=== PATIENT | female | born 1985 | race Caucasian/White ===

== ENCOUNTER 2017-08-20 20:00 | Inpatient (IN) | payer OTHER ==
[2017-08-20 21:10] LABS: BASO % 0.7 % (0-2.0); EOS % 1.4 % (0-4.5); HEMOGLOBIN 10.2 GM/dL (10.7-15.3); LYMPH % 14.8 % (8-40); MCH 27.4 pg (25.7-33.7); MEAN CELL VOLUME 83.1 fl (80-96); MEAN PLT VOLUME 8.5 fl (7.5-11.1); MONO % 9.1 % (3.8-10.2); PLATELET COUNT 248 K/MM3 (134-434); RBC 3.74 M/mm3 (3.60-5.2); RDW 14.2 % (11.6-15.6); WHITE BLOOD COUNT 10.7 K/mm3 (4.0-10.0)
[2017-08-20 21:27] LABS: ANION GAP 9 (8-16); BLOOD UREA NITROGEN 9 mg/dL (7-18); CALCIUM 8.5 mg/dL (8.5-10.1); CHLORIDE 109 mmol/L (98-107); CO2 22 mmol/L (21-32); CREATININE 0.7 mg/dL (0.55-1.02); GLUCOSE,RANDOM 95 mg/dL (74-106); SODIUM 140 mmol/L (136-145)
[2017-08-20 21:30] LABS: INR 0.91 (0.82-1.09); PROTHROMBIN TIME (PATIENT) 10.3 SEC (9.7-13.0)
[2017-08-20 21:32] LABS: ACTIVATED PTT 27.6 SECONDS (25.2-36.5)
--- NOTE | 2017-08-20 21:32 | HP ---
Past Medical History - Primary Care Physician PCP:: Dilip Guzman - Admission Chief Complaint: 39.5 weeks, gestational HTN , obesity ,referred for cervidil induction History of Present Illness: 32 yo f edc by sono 08/22/17 , with hx of maternal obesity, gestational HTN , referred for cervidil induction , risk has discussed with patient , no rom , no bleeding , cx closed long vx -3 mi, fhr cat 1, no contraction History Source: Patient Limitations to Obtaining History: No Limitations - Past Medical History ...: 1 ...Para: 0 ...Spon : 0 ...EDC by Sono: 08/22/17 Heme/Onc: Yes: Anemia Endocrine: Yes: Hypothyroidism (on no meds), Other (hx of PCOS previously on metformin) - Past Surgical History Hx Myomectomy: No Hx Transabdominal Cerclage: No - Alcohol/Substance Use Hx Alcohol Use: No History of Substance Use: reports: None - Social History Usual Living Arrangement: Yes: With Spouse History of Recent Travel: No Home Medications - Allergies Allergies/Adverse Reactions: Allergies Allergy/AdvReac Type Severity Reaction Status Date / Time No Known Allergies Allergy Verified 08/15/17 20:54 - Home Medications Home Medications: Ambulatory Orders Tablet 1 tablet PO HS 08/15/17 Review of Systems - Review of Systems Constitutional: reports: No Symptoms Eyes: reports: No Symptoms HENT: reports: No Symptoms Neck: reports: No Symptoms Cardiovascular: reports: No Symptoms Respiratory: reports: No Symptoms Gastrointestinal: reports: No Symptoms Genitourinary: reports: No Symptoms Breasts: reports: No Symptoms Reported Musculoskeletal: reports: No Symptoms Integumentary: reports: No Symptoms Neurological: reports: No Symptoms Endocrine: reports: No Symptoms Hematology/Lymphatic: reports: No Symptoms Psychiatric: reports: No Symptoms Physical Exam - Maternity Constitutional: Yes: Well Nourished, No Distress, Calm Eyes: Yes: WNL, Conjunctiva Clear, EOM Intact HENT: Yes: WNL, Atraumatic, Normocephalic Neck: Yes: WNL, Supple, Trachea Midline Cardiovascular: Yes: WNL, Regular Rate and Rhythm Breast(s): Yes: WNL - Abdominal Exam/OB Fundal Height: 40 Number of Fetuses: Single Presentation: Vertex Contractions: No Intensity: Unaware Monitor Mode: External Heart Rate Location: [facility] Category: I Accelerations: Uniform Decelerations: None - Vaginal Exam/OB Vaginal Bleediing: No Speculum Exam: No Dilatation (cm): closed Effacement (%): 0 Amniotic Membrane Status: Intact Presentation: Vertex/Position Station: -3 - Physical Exam Edema: LLE: Trace, RLE: Trace Deep Tendon Reflex Grade: Normal +2 ...Motor Strength: WNL Psychiatric: Yes: WNL - Labs Lab Results: CBC, BMP 08/20/17 21:00 Hemorrhage Risk Assessment - Risk Factors Medium Risk Factors: Yes: None High Risk Factors: Yes: None Risk Score: 1 Risk Level: Medium Risk Problem List - Problems (1) with 39 completed weeks gestation Code(s): Z3A.39 - 39 WEEKS GESTATION OF (2) Gestational [-induced] hypertension without significant proteinuria , unspecified trimester Code(s): O13.9 - GESTATIONAL HTN W/O SIGNIFICANT PROTEINURIA, UNSP TRIMESTER (3) Obesity Code(s): E66.9 - OBESITY, UNSPECIFIED Assessment/Plan admit for cervidil induction, risks discussed , cervidil inserted at 920 pm, fhm monitor 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
[2017-08-20 21:42] VITALS: BMI 41.5
[2017-08-20 22:00] LABS: URIC ACID 4.5 mg/dL (2.6-7.2)
[2017-08-20] MEDS ORDERED: PROMETHAZINE HCL 25 MG/1 ML VIAL IVPUSH ONE (22:15)
[2017-08-20] MEDS ORDERED: TUBERCULIN PPD 5 TU/0.1ML SYRINGE (IN PATIENT USE ONLY) ID ONE (22:30)
[2017-08-20] MEDS ORDERED: BUTORPHANOL TARTRATE 1 MG/ML VIAL IVPUSH ONE (22:30)
[2017-08-20 22:39] LABS: URINE APPEARANCE SLCLOUDY; URINE BILIRUBIN NEGATIVE (<2.0 mg/dL); URINE COLOR YELLOW; URINE GLUCOSE (UA) NEGATIVE (NEGATIVE); URINE KETONE NEGATIVE (NEGATIVE); URINE LEUK ESTERASE NEGATIVE (NEGATIVE); URINE NITRITE NEGATIVE (NEGATIVE); URINE PROTEIN NEGATIVE (NEGATIVE); URINE UROBILINOGEN NEGATIVE mg/dL (0.2-1.0)
[2017-08-21] MEDS ORDERED: DINOPROSTONE 10 MG VAGINAL SUPPOSITORY VG ONE (10:38)
--- NOTE | 2017-08-21 10:40 | PN ---
Progress Note, Labor Vaginal Exam #1 Labor Exam Date: 08/21/17 Labor Exam Time: 10:10 Heart Rate (range): 130s + accels, no decels Dilatation: 2 Effacement (%): 50% Amniotic Membrane Status: Intact Presentation: Vertex/Position Station: -3 Remarks: Category 1 FHR EFW 8lb Fam/Hx both mother and sister had c/sections Significant risk of c/section However currently MF status reassuring Excellent response to Cervidil - favorable cervix She is uncomfortable and would take Stadol/Phenergan for pain management Once constructions slow down Pitocin can be started Aura and her family understand there is significant risk of failure, and possibility of c/section, due to possible CPD
[2017-08-21] MEDS ORDERED: OXYTOCIN 30 UNITS in 0.9% NS 30 UNIT/500 ML INFUS.BAG IVPB SCH (10:45)
[2017-08-21] MEDS ORDERED: BUTORPHANOL TARTRATE 1 MG/ML VIAL ONE ×2 (10:55)
[2017-08-21] MEDS ORDERED: PROMETHAZINE HCL 25 MG/1 ML VIAL ONE (10:56)
[2017-08-21] MEDS ORDERED: FENTANYL/BUPIVACAINE/NS/PF - PCEA - 50 ML DISP.SYRIN EP ONE ×2 (13:55→18:28)
[2017-08-21] MEDS ORDERED: NALOXONE HCL 0.4 MG/ML VIAL IVPUSH PRN (13:57)
[2017-08-21] MEDS ORDERED: FENTANYL/BUPIVACAINE/NS/PF - PCEA - 50 ML DISP.SYRIN EP SCH (14:00)
[2017-08-21] MEDS ORDERED: LIDO 2%/EPI 1:200000 PRESRVFRE (20 ML SDVIAL) ONE ×2 (14:01→19:42)
[2017-08-21] MEDS: ELECTROLYTE-148 SOLN 1,000 ML IV SCH ×2 (14:30→19:30)
[2017-08-21] MEDS ORDERED: ELECTROLYTE-148 SOLN 1,000 ML IV ONE (18:45)
[2017-08-21] MEDS ORDERED: DEXTROSE 5%-LACTATED RINGERS 1,000 ML IV SCH ×2 (18:45→22:15)
--- NOTE | 2017-08-21 19:31 | PN ---
Progress Note, Labor Vaginal Exam #2 Labor Exam Date: 08/21/17 Labor Exam Time: 19:15 Heart Rate (range): 125' s Good accels, no decels Dilatation: 2 Effacement (%): 50% Amniotic Membrane Status: Intact Presentation: Vertex/Position Station: -3 Remarks: Unchanged exam, Irregular contraction pattern, occasional late decels when on larger doses of Pitocin No progress, All features of CPD offered primary c/section Risk of infection, bleeding, injury to internal organs and scaring discussed with patient and family Alternative is prolonged RAFAEL with risk of Chorioamnionitis, Shoulder dystosia, or just failed induction later Patient Elects to proceed with primary c/section
[2017-08-21] MEDS ORDERED: ceFAZolin SODIUM 1 GM VIAL ONE (19:49)
[2017-08-21] MEDS ORDERED: ONDANSETRON 4 MG/2 ML VIAL IVPUSH PRN (19:54)
[2017-08-21] MEDS ORDERED: morphine SULFATE/Preservative Free 0.5 MG/ML (1cc Syringe) EP ONE (19:54)
[2017-08-21] MEDS ORDERED: morphine SULFATE/Preservative Free 0.5 MG/ML (1cc Syringe) ONE ×7 (20:04→20:40)
[2017-08-21] MEDS ORDERED: MIDAZOLAM HCL 2 MG/2 ML SINGLE DOSE VIAL ONE ×2 (20:12→20:32)
[2017-08-21] MEDS ORDERED: OXYTOCIN 10 UNITS/ML VIAL ONE (20:34)
[2017-08-21] MEDS ORDERED: OXYTOCIN 20 UNITS in 0.9% NS 20 UNIT/1,000 ML INFUS.BAG IV ONE ×2 (20:36→21:51)
[2017-08-21] MEDS ORDERED: BUPIVACAINE HCL/PF 0.5% (5MG/ML) 10 ML VIAL ONE (20:36)
[2017-08-21] MEDS ORDERED: METOPROLOL TARTRATE 5 MG/5 ML VIAL ONE (20:46)
--- NOTE | 2017-08-21 21:29 | OP ---
Operative Note - Note: Operative Date: 08/21/17 Pre-Operative Diagnosis: 32yo P0 @ 39.6 wks with failed IOL, CPD Operation: Primary LST c/section Findings: Viable male [id number], head not engaged Normal tubes and ovaries Post-Operative Diagnosis: Same as Pre-op Surgeon: Josie Wynn Superintendent Geophysical Laboratory: Baron London Anesthesiologist/PROVIDER RELATIONS REP: Harman Conner Anesthesia: Epidural Estimated Blood Loss (mls): 700 Drains, Volume Out (mls): 150 Fluid Volume Replaced (mls): 1,400
--- NOTE | 2017-08-21 21:41 | PN ---
Delivery - Delivery Vaginal Delivery: No Problems, Other Section: Primary Type of Anesthesia: Epidural Episiotomy/Laceration: None EBL (cc): 700 Delivery, Single - Stages of Labor Date of Delivery: 08/21/17 Time of Delivery: 20:14 Date Placenta Delivered: 08/21/17 Time Placenta Delivered: 20:15 Placenta: Yes: Expressed - Condition of Infant Furnace Mechanic Helper/Cane Burner Present: No Gender: Male Weight: 7 lb 1 oz Position: OA Total Hours ROM (Hrs/Mins): 2 MIN - 1 Minute Total Score: 9 5 Minutes Total Score: 9 - Feeding Plan Initial Plan: Elected not to breastfeed exclusively throughout hospitalization Benefits of Exclusively reinforced: Yes Remarks - Remarks Remarks: See Op note
[2017-08-21] MEDS: OXYTOCIN 20 UNITS in 0.9% NS 20 UNIT/1,000 ML INFUS.BAG IV SCH (22:00)
[2017-08-21] MEDS ORDERED: WITCH HAZEL 50% (TUCKS) 40 PAD/JAR PAD TP PRN (22:03)
[2017-08-21] MEDS ORDERED: diphenhydrAMINE HCL 25 MG CAPSULE (FP) PO PRN (22:03)
[2017-08-21] MEDS ORDERED: BENZOCAINE 28 GM HEMORRHOIDAL OINTMENT PR PRN (22:03)
[2017-08-21] MEDS ORDERED: BENZOCAINE 20% 57 GM BOTTLE TP PRN (22:03)
[2017-08-21] MEDS ORDERED: METHYLERGONOVINE MALEATE 0.2 MG/1 ML AMP IM PRN (22:03)
[2017-08-21] MEDS ORDERED: CITRIC ACID/SODIUM CITRATE 30 ML UNIT-DOSE CUP PO ONE (22:06)
[2017-08-21] MEDS: IBUPROFEN 800 MG/8 ML IJ IVPB PRN (23:19)
[2017-08-22] MEDS ORDERED: cefTRIAXone SODIUM 1 GM VIAL ONE ×2 (01:48→08:53)
[2017-08-22] MEDS ORDERED: DEXTROSE 5%-WATER - 50 ML IVPB ONE ×2 (01:48→08:53)
[2017-08-22] MEDS: CEFTRIAXONE 1 GM in DEXTROSE 5%-WATER - 50 ML IVPB SCH ×2 (01:58→09:03)
[2017-08-22] MEDS: IBUPROFEN 800 MG/8 ML IJ IVPB PRN (06:32)
[2017-08-22 07:25] LABS: BASO % 0.4 % (0-2.0); EOS % 0.5 % (0-4.5); HEMOGLOBIN 8.5 GM/dL (10.7-15.3); LYMPH % 13.8 % (8-40); MCH 27.4 pg (25.7-33.7); MCHC 32.8 g/dl (32.0-36.0); MEAN CELL VOLUME 83.4 fl (80-96); MEAN PLT VOLUME 8.1 fl (7.5-11.1); MONO % 9.1 % (3.8-10.2); NEUT % 76.2 % (42.8-82.8); PLATELET COUNT 194 K/MM3 (134-434); RBC 3.11 M/mm3 (3.60-5.2); RDW 14.1 % (11.6-15.6); WHITE BLOOD COUNT 11.9 K/mm3 (4.0-10.0)
--- NOTE | 2017-08-22 08:16 | OP ---
DATE OF OPERATION: 08/21/2017 PREOPERATIVE DIAGNOSIS: A 32-year-old para 0 at 39 and 6 weeks with failed induction of labor, cephalopelvic disproportion. POSTOPERATIVE DIAGNOSIS: A 32-year-old para 0 at 39 and 6 weeks with failed induction of labor, cephalopelvic disproportion. OPERATION: Primary low-segment transverse section. FINDINGS: Viable male, 7 pounds 14 ounces. Head not engaged. Normal tubes and ovaries. SURGEON: Josie Wynn MD DIRECTOR ORACLE DATABASE: Baron London MD ANESTHESIOLOGIST: Russ Conner MD ANESTHESIA: Epidural. DESCRIPTION OF OPERATIVE PROCEDURE: After ensuring informed consent, patient was brought to the operating room where she was placed in dorsal supine position with left lateral tilt. Pfannenstiel skin incision was created with scalpel, carried down to the level of fascia with Bovie cautery. Fascia was incised in the midline with Bovie and extended bilaterally with Bovie cautery. Fascia was dissected off of the rectus abdominis muscle with Bovie cautery. Rectus muscle was split in the midline and dissected all the way down to the symphysis pubis. Peritoneum was identified, tented, and entered bluntly and dissected bilaterally, and bladder retracted with the lower edge of the [place]an. Vesicouterine peritoneum was identified, tented with pickup, and dissected bilaterally with Metzenbaum scissors and bluntly downwards and retracted with the lower edge of the [place]. Scalpel used to create the uterine incision which was subsequently dissected bilaterally with bandage scissors with good visualization of round ligaments. The infant's head was found to be ballottable and high, not engaged in the pelvis, and was delivered atraumatically. The rest of the 's body was delivered without any difficulties. Cord clamped and cut. The infant handed to pediatricians. Placenta was expressed without difficulty. Uterus was cleared of clots and debris and repaired with 0 Biosyn in 2 running, locking sutures, second one being imbricating. The abdomen was irrigated and found to be cleared of clots and debris. The peritoneum was repaired with 0 Biosyn in running fashion. The muscle rectus abdominis was reapproximated in the midline with interrupted sutures. The fascia was closed with 0 Vicryl in 1 suture. The subsequent subcutaneous space, which was almost 3 inches in size, was closed in 2 layers with 2-0 chromic, and subsequently, skin was closed with 4-0 Biosyn in running fashion. Excellent hemostasis was noted. Estimated blood loss was 700 mL. Patient put out 150 mL of urine and received 1400 mL of IV fluids. She was brought to the recovery room in stable condition. Carole [id number]
--- NOTE | 2017-08-22 08:18 | PN ---
Post Progress Note - Subjective Subjective: No complains, pain controlled Post Day: 1 Type of Delivery: Primary C/S Vital Signs: Vital Signs Temperature 98.5 F 08/22/17 07:10 Pulse Rate 91 H 08/22/17 07:10 Respiratory Rate 20 08/22/17 07:10 Blood Pressure 123/73 08/22/17 07:10 O2 Sat by Pulse Oximetry (%) 100 08/21/17 22:00 Breast Exam: Yes: Soft Uterus: Yes: Fundus Firm Incision: Yes: Dressing dry and intact Abdomen/GI: Yes: Abdomen soft Lochia: Yes: Rubra Lochia, amount: Small Extremities: Yes: Calves non-tender Perineum: Yes: Intact Activity: Ambulating, Other (in bed) - Labs Labs: CBC WBC 11.9 K/mm3 (4.0-10.0) H 08/22/17 06:20 RBC 3.11 M/mm3 (3.60-5.2) L 08/22/17 06:20 Hgb 8.5 GM/dL (10.7-15.3) L 08/22/17 06:20 Hct 26.0 % (32.4-45.2) L D 08/22/17 06:20 MCV 83.4 fl (80-96) 08/22/17 06:20 MCH 27.4 pg (25.7-33.7) 08/22/17 06:20 MCHC 32.8 g/dl (32.0-36.0) 08/22/17 06:20 RDW 14.1 % (11.6-15.6) 08/22/17 06:20 Plt Count 194 K/MM3 (134-434) D 08/22/17 06:20 MPV 8.1 fl (7.5-11.1) 08/22/17 06:20 Absolute Neuts (auto) 9.1 # 08/22/17 06:20 Neutrophils % 76.2 % (42.8-82.8) 08/22/17 06:20 Lymphocytes % 13.8 % (8-40) 08/22/17 06:20 Monocytes % 9.1 % (3.8-10.2) 08/22/17 06:20 Eosinophils % 0.5 % (0-4.5) 08/22/17 06:20 Basophils % 0.4 % (0-2.0) 08/22/17 06:20 Nucleated RBC % 0 % (0-0) 08/22/17 06:20 Haptoglobin 141 mg/dL (34-200) 08/20/17 21:43 Assessment/Plan 32yo P1 now s/p 1' c/section for CPD, Failed IOL Doing well VSS, Afebrile D/C Dove, encorage ambulation Rh positive - no need for RhoGam Male infant not interested in circumcision H/H low will correct with diet cont. routine care
[2017-08-22] MEDS: OXYTOCIN 20 UNITS in 0.9% NS 20 UNIT/1,000 ML INFUS.BAG IV SCH (08:30)
--- NOTE | 2017-08-22 11:10 | PN ---
Progress Note (short form) - Note Progress Note: Anesthesia/pain Pt seen and examined S:Alert and awake comfortable O: Vital Signs Temperature 98.5 F 08/22/17 07:10 Pulse Rate 91 H 08/22/17 07:10 Respiratory Rate 20 08/22/17 10:00 Blood Pressure 123/73 08/22/17 07:10 O2 Sat by Pulse Oximetry (%) 100 08/21/17 22:00 CBC, BMP 08/22/17 06:20 08/20/17 21:00 A/P: Current Active Problems Gestational [-induced] hypertension without significant proteinuria, unspecified trimester (Acute) Obesity (Acute) with 39 completed weeks gestation (Acute) s/p c section Doing well post op Continue current care Mikey Sotelo MD
[2017-08-22] MEDS: oxyCODONE HCL 5 MG TABLET PO PRN ×3 (13:23→21:45)
[2017-08-22] MEDS: IBUPROFEN 600 MG TABLET (FP) PO PRN ×3 (13:24→21:44)
[2017-08-22] MEDS: SIMETHICONE 80 MG TAB.CHEW (FP) PO PRN ×3 (13:25→21:44)
[2017-08-22] MEDS ORDERED: BISACODYL 10 MG SUPP.RECT RC PRN (22:03)
[2017-08-23] MEDS: SIMETHICONE 80 MG TAB.CHEW (FP) PO PRN ×3 (04:37→22:23)
[2017-08-23] MEDS: oxyCODONE HCL 5 MG TABLET PO PRN ×3 (04:37→22:23)
[2017-08-23] MEDS: IBUPROFEN 600 MG TABLET (FP) PO PRN ×3 (04:38→22:23)
--- NOTE | 2017-08-23 08:49 | PN ---
Post Progress Note - Subjective Subjective: No complaints, doing well. Post Day: 2 Type of Delivery: Primary C/S Vital Signs: Vital Signs Temperature 98.6 F 08/22/17 22:00 Pulse Rate 76 08/22/17 22:00 Respiratory Rate 18 08/22/17 22:00 Blood Pressure 112/55 08/22/17 22:00 O2 Sat by Pulse Oximetry (%) 100 08/21/17 22:00 Breast Exam: Yes: Soft Uterus: Yes: Fundus Firm, Fundus below umbilicus, Non-tender Incision: Yes: Dressing dry and intact, Sutures intact Abdomen/GI: Yes: Abdomen soft, Passing flatus, Tolerating PO Lochia: Yes: Rubra Lochia, amount: Small Extremities: Yes: Calves non-tender, Edema (Trace b/l) Perineum: Yes: Intact Activity: Ambulating - Labs Labs: CBC WBC 11.9 K/mm3 (4.0-10.0) H 08/22/17 06:20 RBC 3.11 M/mm3 (3.60-5.2) L 08/22/17 06:20 Hgb 8.5 GM/dL (10.7-15.3) L 08/22/17 06:20 Hct 26.0 % (32.4-45.2) L D 08/22/17 06:20 MCV 83.4 fl (80-96) 08/22/17 06:20 MCH 27.4 pg (25.7-33.7) 08/22/17 06:20 MCHC 32.8 g/dl (32.0-36.0) 08/22/17 06:20 RDW 14.1 % (11.6-15.6) 08/22/17 06:20 Plt Count 194 K/MM3 (134-434) D 08/22/17 06:20 MPV 8.1 fl (7.5-11.1) 08/22/17 06:20 Absolute Neuts (auto) 9.1 # 08/22/17 06:20 Neutrophils % 76.2 % (42.8-82.8) 08/22/17 06:20 Lymphocytes % 13.8 % (8-40) 08/22/17 06:20 Monocytes % 9.1 % (3.8-10.2) 08/22/17 06:20 Eosinophils % 0.5 % (0-4.5) 08/22/17 06:20 Basophils % 0.4 % (0-2.0) 08/22/17 06:20 Nucleated RBC % 0 % (0-0) 08/22/17 06:20 Haptoglobin 141 mg/dL (34-200) 08/20/17 21:43 Assessment/Plan 32yo P1 s/p primary LT C/S, doing well stable, afebrile. care instructions reviewed. Asymptomatic for anemia. Continue routine postop care. Ambulation encouraged.
--- NOTE | 2017-08-23 08:55 | DS ---
Physical Exam-ALGEBRA TUTOR Vital Signs: Vital Signs Temperature 98.6 F 08/22/17 22:00 Pulse Rate 76 08/22/17 22:00 Respiratory Rate 18 08/22/17 22:00 Blood Pressure 112/55 08/22/17 22:00 O2 Sat by Pulse Oximetry (%) 100 08/21/17 22:00 Constitutional: Yes: Well Nourished, No Distress, Calm, Obese Eyes: Yes: WNL, Conjunctiva Clear HENT: Yes: WNL, Atraumatic, Normocephalic Neck: Yes: WNL, Supple, Trachea Midline Cardiovascular: Yes: WNL, Regular Rate and Rhythm Respiratory: Yes: WNL, Regular, CTA Bilaterally Gastrointestinal: Yes: WNL, Normal Bowel Sounds, Soft, Abdomen, Obese ...Rectal Exam: Yes: Deferred Renal/: Yes: WNL External Genitalia: Yes: Normal Internal Exam Deferred: Yes ....Post : Yes: Uterus firm, Uterus non-tender, Slight lochia rubra Breast(s): Yes: WNL Musculoskeletal: Yes: WNL Extremities: Yes: WNL Integumentary: Yes: WNL Wound/Incision: Yes: Clean/Dry, Well Approximated, Sutures Intact, Open to air Neurological: Yes: WNL, Alert, Oriented ...Motor Strength: WNL Psychiatric: Yes: WNL, Alert, Oriented Labs: CBC, BMP 08/22/17 06:20 08/20/17 21:00 Delivery - Delivery Vaginal Delivery: No Problems, Other Section: Primary, Low Flap Transverse Type of Anesthesia: Epidural Episiotomy/Laceration: None EBL (cc): 700 Delivery, Single - Stages of Labor Date 1st Stage Initiatied: 08/21/17 Time 1st Stage Initiated: 14:00 Date of Delivery: 08/21/17 Time of Delivery: 20:14 Time Placenta Delivered: 20:15 Placenta: Yes: Expressed, Normal Configuration - Condition of Infant Pipelayer/Clinical Administrative Coordinator Present: No Gender: Male Weight: 3.203 kg Position: OA Total Hours ROM (Hrs/Mins): 2 MIN - 1 Minute Total Score: 9 5 Minutes Total Score: 9 - [place] Feeding Plan Initial Plan: Elected not to breastfeed exclusively throughout hospitalization Benefits of Exclusively reinforced: Yes Discharge Summary Reason For Visit: INDUCTION OF LABOR Current Active Problems Gestational [-induced] hypertension without significant proteinuria, unspecified trimester (Acute) Obesity (Acute) with 39 completed weeks gestation (Acute) Procedures: Principal: Primary LT C/S Hospital Course: Normal recovery Condition: Good - Instructions Diet, Activity, Other Instructions: Physical activity Resume your normal everyday activity as tolerated no heavy lifting or exercise until seen by your surgeon. You may walk unlimited ria of and climb stairs. You may resume driving the car when you feel safe and comfortable behind the wheel. No sexual activity as instructed. Wound care If you have a bandage, leave it on, and keep dry for 48-72 hours. After that time discard the outer bandage. If they are tapes on the skin under the out of bandage leave them in place. They will peel off in the next 7 to 10 days. Do Not Peel them off. You may shower the day after surgery. If there are tapes present on the skin, you may shower over them. Diet There are no dietary restrictions. Eat healthy, high-fiber foods. Drink 6 to 8 glasses of liquid each day. This will assist in keeping your bowels are regular. Pain management You may take Tylenol or acetaminophen or Ibuprofen (for example, Motrin, Advil etc.) from my pain prescription medication is ordered should be taken as prescribed for moderate to severe pain. Call MD for any of the following: Severe pain not relieved by medication Fever of 101 or higher Excessive bleeding or drainage on dressing Inability to urinate Referrals: Baron London MD [Staff Physician] - Disposition: HOME - Home Medications Comprehensive Discharge Medication List: Ambulatory Orders Tablet 1 tablet PO HS 08/15/17
[2017-08-23] MEDS ORDERED: SENNOSIDES/DOCUSATE COMBO (SENNA PLUS) TABLET (UD) PO PRN (22:00)
[2017-08-24 07:56] LABS: BASO % 0.8 % (0-2.0); EOS % 2.7 % (0-4.5); HEMATOCRIT 24.7 % (32.4-45.2); HEMOGLOBIN 8.3 GM/dL (10.7-15.3); LYMPH % 13.7 % (8-40); MCH 27.8 pg (25.7-33.7); MCHC 33.6 g/dl (32.0-36.0); MEAN CELL VOLUME 82.7 fl (80-96); MEAN PLT VOLUME 7.8 fl (7.5-11.1); MONO % 6.7 % (3.8-10.2); NEUT % 76.1 % (42.8-82.8); PLATELET COUNT 273 K/MM3 (134-434); RBC 2.99 M/mm3 (3.60-5.2); RDW 14.2 % (11.6-15.6); WHITE BLOOD COUNT 10.8 K/mm3 (4.0-10.0)
[2017-08-24 08:10] VITALS: BP 136/87; PULSE 92; TEMP 98.2
--- NOTE | 2017-08-24 09:10 | PN ---
Post Progress Note - Subjective Subjective: Patient without acute complaints. Reports tolerating oral intake without nausea or vomiting. Ambulating without dizziness. Denies fevers or chills. Pain well controlled with oral pain medication. without difficulty. Passing flatus. Post Day: 3 Type of Delivery: Primary C/S Vital Signs: Vital Signs Temperature 98.2 F 08/24/17 07:40 Pulse Rate 92 H 08/24/17 07:40 Respiratory Rate 20 08/24/17 07:40 Blood Pressure 136/87 08/24/17 07:40 O2 Sat by Pulse Oximetry (%) 100 08/21/17 22:00 Uterus: Yes: Fundus Firm Incision: Yes: Sutures intact Abdomen/GI: Yes: Abdomen soft, Tender (mild incisional), Passing flatus, Tolerating PO. No: Abdominal Distention Lochia: Yes: Serosa Lochia, amount: Small Extremities: Yes: Calves non-tender, Edema (+1) Perineum: Yes: Intact - Labs Labs: CBC WBC 10.8 K/mm3 (4.0-10.0) H 08/24/17 07:00 RBC 2.99 M/mm3 (3.60-5.2) L 08/24/17 07:00 Hgb 8.3 GM/dL (10.7-15.3) L 08/24/17 07:00 Hct 24.7 % (32.4-45.2) L 08/24/17 07:00 MCV 82.7 fl (80-96) 08/24/17 07:00 MCH 27.8 pg (25.7-33.7) 08/24/17 07:00 MCHC 33.6 g/dl (32.0-36.0) 08/24/17 07:00 RDW 14.2 % (11.6-15.6) 08/24/17 07:00 Plt Count 273 K/MM3 (134-434) D 08/24/17 07:00 MPV 7.8 fl (7.5-11.1) 08/24/17 07:00 Absolute Neuts (auto) 8.2 # 08/24/17 07:00 Neutrophils % 76.1 % (42.8-82.8) 08/24/17 07:00 Lymphocytes % 13.7 % (8-40) 08/24/17 07:00 Monocytes % 6.7 % (3.8-10.2) 08/24/17 07:00 Eosinophils % 2.7 % (0-4.5) D 08/24/17 07:00 Basophils % 0.8 % (0-2.0) 08/24/17 07:00 Nucleated RBC % 0 % (0-0) 08/24/17 07:00 Haptoglobin 141 mg/dL (34-200) 08/20/17 21:43 Assessment/Plan 32 yo POD # 3 s/p CD afebrile, vital signs stable, doing well 1. Patient stable for discharge home today. 2. Patient encouraged to contact MD for: - Severe pain not controlled by oral pain medication - Fevers or chills - Nausea or vomiting, intolerance of oral intake - Incision redness, tenderness or discharge 3. Patient to follow up in office in 1-2 weeks for incision check, 4-6 weeks for visit
--- NOTE | 2017-08-25 18:30 | PATH ---
Surgical Pathology Report Patient Name: MYRIAM GONZALES Med. Rec. #: [id number] /Age/Gender: 1985 (Age: 32) / F Account: [id number] Location: [facility] OBS/MOTOR VEHICLE EMISSIONS INSPECTOR Taken: 08/21/2017 Received: 08/22/2017 Reported: 08/25/2017 Physicians: Carole Kaiser M.D. Specimen(s) Received PLACENTA Clinical History , 39.5 weeks, history of PCOS, liposuction 2013, hypothyroidism, hypertension, failed induction Final Diagnosis PLACENTA: THIRD TRIMESTER PLACENTA. TRIVASCULAR CORD. MEMBRANES WITH NO DIAGNOSTIC ABNORMALITIES. Electronically Signed Hardik Levy M.D. Gross Description The specimen is received fresh labeled placenta and is a 677 gram, 20.0 x 15.0 x 2.7 cm. placenta with attached membranes and umbilical cord. The attached membranes are darnell, translucent with focal opacities and insert marginally. The umbilical cord measures 28 cm. in length and averages 1.3 cm. in diameter. The cord inserts eccentrically, 4.5 cm. to the nearest margin. No true knots or strictures are identified. Cut surface of the umbilical cord reveals 3 vessels. The surface is gonzales-blue with minimal fibrin deposition and appropriate caliber vessels. The maternal surface is red-brown with focal defects. Sectioning reveals red-brown, spongy parenchyma. No lesions are identified. Landscape Supervisor sections are submitted in three cassettes as follows: 1- membrane rolls and umbilical cord; 2-3- full thickness sections of placenta. /08/24/2017 [facility]/08/24/2017
== END 2017-08-24 13:10 | disposition home or self-care (01) | DRG 765 ==
LOC: JLDR 20:00 → J3W 08-21 22:58
PROVIDERS: ADMIT Obstetrics & Gynecology; ATTEND Obstetrics & Gynecology
PROC: 10D00Z1 Extraction of Products of Conception, Low, Open Approach (ICD-10-PCS; principal; 2017-08-21)
DX: O65.8 Obstructed labor due to other maternal pelvic abnormalities (principal); Z68.41 Body mass index [BMI] 40.0-44.9, adult; O61.0 Failed medical induction of labor; O32.4XX0 Maternal care for high head at term, not applicable or unspecified; O13.3 Gestational [pregnancy-induced] hypertension without significant proteinuria, third trimester; O99.213 Obesity complicating pregnancy, third trimester; E66.9 Obesity, unspecified; O99.283 Endocrine, nutritional and metabolic diseases complicating pregnancy, third trimester; E03.9 Hypothyroidism, unspecified; O99.013 Anemia complicating pregnancy, third trimester; D64.9 Anemia, unspecified; Z3A.39 39 weeks gestation of pregnancy; Z37.0 Single live birth
CPT/HCPCS: 36415; 80048; 81003; 82977; 83010; 84450; 84460; 84550; 85025; 85610; 85730; 86593; 86850; 86900; 86901

== ENCOUNTER 2021-06-22 07:30 | Inpatient (IN) | payer OTHER ==
[2021-06-22 08:53] VITALS: BMI 42.5
[2021-06-22] MEDS ORDERED: OXYTOCIN 20 UNITS in 0.9% NS 40 UNIT/2,000 ML INFUS.BAG IV ONE (10:01)
[2021-06-22] MEDS ORDERED: ceFAZolin SODIUM 1 GM VIAL ONE ×2 (10:02→18:15)
[2021-06-22] MEDS ORDERED: DEXAMETHASONE SOD PHOSPHATE 4 MG/1 ML VIAL ONE (10:02)
[2021-06-22] MEDS ORDERED: ONDANSETRON 4 MG/2 ML VIAL ONE (10:02)
[2021-06-22] MEDS ORDERED: morphine SULFATE/PF 1 MG/2 ML (2cc Syringe - QUVA) ONE (10:02)
[2021-06-22] MEDS ORDERED: OXYTOCIN 10 UNITS/ML VIAL ONE (10:44)
[2021-06-22] MEDS ORDERED: ELECTROLYTE-148 SOLN 1,000 ML IV SCH (10:45)
[2021-06-22] MEDS ORDERED: MIDAZOLAM HCL 2 MG/2 ML SINGLE DOSE VIAL ONE (10:58)
[2021-06-22] MEDS ORDERED: KETOROLAC TROMETHAMINE 30 MG/1 ML VIAL ONE (11:04)
[2021-06-22 11:39] LABS: CORD BASE EXCESS -1.8 mmol/L (0-2); CORD HCO3 23.7 mmHg (20-29); CORD PCO2 43.1 mmHg (30-78); CORD pH 7.359 (7.14-7.44)
[2021-06-22 11:43] LABS: CORD BASE EXCESS -5.3 mmol/L (0-2); CORD HCO3 22.8 mmHg (20-29); CORD PCO2 54.8 mmHg (30-78); CORD pH 7.237 (7.14-7.44)
[2021-06-22] MEDS ORDERED: IBUPROFEN 800 MG/8 ML IJ IVPB PRN ×2 (12:13→12:40)
[2021-06-22] MEDS ORDERED: ACETAMINOPHEN 1000 MG/100 ML BAG IVPB PRN (12:13)
[2021-06-22] MEDS ORDERED: ACETAMINOPHEN 325 MG TABLET (FP) PO PRN (12:38)
[2021-06-22] MEDS ORDERED: METHYLERGONOVINE MALEATE 0.2 MG/1 ML AMP IM PRN (12:38)
[2021-06-22 13:52] LABS: RETICULOCYTES 2.2 % (0.5-1.5)
[2021-06-22 14:08] LABS: URIC ACID 4.6 mg/dL (2.6-7.2)
[2021-06-22] MEDS: OXYTOCIN 20 UNITS in 0.9% NS 20 UNIT/1,000 ML INFUS.BAG IV SCH ×2 (15:19→23:00)
[2021-06-22] MEDS ORDERED: IBUPROFEN 800 MG/8 ML IJ IVPB ONE (15:22)
[2021-06-22] MEDS ORDERED: OXYTOCIN 20 UNITS in 0.9% NS 20 UNIT/1,000 ML INFUS.BAG IV ONE (15:22)
[2021-06-22] MEDS ORDERED: DEXTROSE 5%-WATER - 50 ML IVPB ONE (18:15)
[2021-06-22] MEDS: CEFAZOLIN 1 GM in DEXTROSE 5%-WATER - 1 GM/50 ML IVPB IVPB SCH (18:19)
[2021-06-22 18:40] LABS: HEMATOCRIT 29.4 % (32.4-45.2); HEMOGLOBIN 9.5 GM/dL (10.7-15.3); MCH 28.2 pg (25.7-33.7); MCHC 32.5 g/dl (32.0-36.0); MEAN CELL VOLUME 86.9 fl (80-96); MEAN PLT VOLUME 8.6 fl (7.5-11.1); PLATELET COUNT 239 10^3/uL (134-434); RBC 3.38 M/mm3 (3.60-5.2); RDW 13.6 % (11.6-15.6); WHITE BLOOD COUNT 17.9 K/mm3 (4.0-10.0)
[2021-06-22 20:11] LABS: PLATELET ESTIMATE ADEQUATE
[2021-06-22] MEDS: IBUPROFEN 600 MG TABLET (FP) PO PRN (22:29)
[2021-06-22] MEDS: SIMETHICONE 80 MG TAB.CHEW (FP) PO PRN (22:29)
[2021-06-22] MEDS: oxyCODONE HCL 5 MG TABLET PO PRN (23:27)
[2021-06-23] MEDS ORDERED: DEXTROSE 5%-WATER - 50 ML IVPB ONE ×2 (00:10→09:47)
[2021-06-23] MEDS ORDERED: ceFAZolin SODIUM 1 GM VIAL ONE ×2 (00:11→09:47)
[2021-06-23] MEDS: CEFAZOLIN 1 GM in DEXTROSE 5%-WATER - 1 GM/50 ML IVPB IVPB SCH ×2 (01:50→11:28)
[2021-06-23] MEDS: IBUPROFEN 600 MG TABLET (FP) PO PRN ×2 (01:59→09:46)
[2021-06-23] MEDS: SIMETHICONE 80 MG TAB.CHEW (FP) PO PRN ×4 (01:59→20:32)
[2021-06-23 07:24] LABS: BASO % 0.4 % (0-2.0); EOS % 0.2 % (0-4.5); HEMATOCRIT 27.4 % (32.4-45.2); MCH 28.3 pg (25.7-33.7); MCHC 32.8 g/dl (32.0-36.0); MEAN CELL VOLUME 86.2 fl (80-96); MEAN PLT VOLUME 8.4 fl (7.5-11.1); MONO % 6.8 % (3.8-10.2); NEUT % 81.6 % (42.8-82.8); PLATELET COUNT 257 10^3/uL (134-434); RBC 3.18 M/mm3 (3.60-5.2); RDW 13.7 % (11.6-15.6); WHITE BLOOD COUNT 17.6 K/mm3 (4.0-10.0)
[2021-06-23] MEDS: oxyCODONE HCL 5 MG TABLET PO PRN ×2 (17:34→20:31)
[2021-06-23] MEDS: BISACODYL 10 MG SUPP.RECT RC PRN ×2 (20:32→23:57)
[2021-06-23] MEDS ORDERED: OXYBUTYNIN CHLORIDE 5 MG TABLET PO ONE (23:17)
[2021-06-24] MEDS: HYOSCYAMINE SULFATE 0.125 MG *ODT PO PRN ×3 (00:18→22:15)
[2021-06-24] MEDS: oxyCODONE HCL 5 MG TABLET PO PRN ×2 (02:22→10:30)
[2021-06-24] MEDS: SIMETHICONE 80 MG TAB.CHEW (FP) PO PRN ×3 (02:23→23:43)
[2021-06-24] MEDS: IBUPROFEN 600 MG TABLET (FP) PO PRN ×4 (03:38→23:43)
[2021-06-24] MEDS: ENOXAPARIN NA (PORCINE) 40 MG/0.4 ML DISP.SYRIN SQ SCH (10:30)
[2021-06-24] MEDS: TAMSULOSIN HCL 0.4 MG CAP PO SCH (10:30)
[2021-06-24 12:11] LABS: CREATININE 0.6 mg/dL (0.55-1.3)
[2021-06-24] MEDS: ONDANSETRON 4 MG/2 ML VIAL IVPUSH PRN ×2 (16:14→23:00)
[2021-06-24 19:06] LABS: ALBUMIN 2.5 g/dl (3.4-5.0); BLOOD UREA NITROGEN 6.5 mg/dL (7-18)
[2021-06-24 19:09] LABS: CREATININE 0.5 mg/dL (0.55-1.3)
[2021-06-24 19:10] LABS: BILIRUBIN,TOTAL 0.2 mg/dL (0.2-1); TOT PROT 6.1 g/dl (6.4-8.2)
[2021-06-25 07:29] LABS: BASO % 0.2 % (0-2.0); HEMATOCRIT 29.6 % (32.4-45.2); HEMOGLOBIN 9.7 GM/dL (10.7-15.3); LYMPH % 13.9 % (8-40); MCH 28.1 pg (25.7-33.7); MCHC 32.8 g/dl (32.0-36.0); MEAN CELL VOLUME 85.6 fl (80-96); MEAN PLT VOLUME 7.8 fl (7.5-11.1); MONO % 5.9 % (3.8-10.2); PLATELET COUNT 382 10^3/uL (134-434); RBC 3.46 M/mm3 (3.60-5.2); RDW 13.6 % (11.6-15.6); WHITE BLOOD COUNT 15.9 K/mm3 (4.0-10.0)
[2021-06-25] MEDS: ENOXAPARIN NA (PORCINE) 40 MG/0.4 ML DISP.SYRIN SQ SCH (10:30)
[2021-06-25] MEDS: TAMSULOSIN HCL 0.4 MG CAP PO SCH (10:31)
[2021-06-25] MEDS: IBUPROFEN 600 MG TABLET (FP) PO PRN (12:29)
[2021-06-26] MEDS: IBUPROFEN 600 MG TABLET (FP) PO PRN ×2 (00:58→09:47)
[2021-06-26] MEDS: ENOXAPARIN NA (PORCINE) 40 MG/0.4 ML DISP.SYRIN SQ SCH (09:47)
[2021-06-26] MEDS: TAMSULOSIN HCL 0.4 MG CAP PO SCH (09:48)
[2021-06-26 10:40] VITALS: BP 134/91; PULSE 85; TEMP 97.9
== END 2021-06-26 13:45 | disposition home or self-care (01) | DRG 788 ==
LOC: JLDR 07:30 → J3W 15:30
PROVIDERS: ADMIT Obstetrics & Gynecology; ATTEND Obstetrics & Gynecology
PROC: 10D00Z1 Extraction of Products of Conception, Low, Open Approach (ICD-10-PCS; principal; 2021-06-22)
DX: O34.219 Maternal care for unspecified type scar from previous cesarean delivery (principal); O13.4 Gestational [pregnancy-induced] hypertension without significant proteinuria, complicating childbirth; O69.81X0 Labor and delivery complicated by cord around neck, without compression, not applicable or unspecified; O75.4 Other complications of obstetric surgery and procedures; R31.9 Hematuria, unspecified; O99.214 Obesity complicating childbirth; E66.01 Morbid (severe) obesity due to excess calories; Z3A.39 39 weeks gestation of pregnancy; Z37.0 Single live birth
CPT/HCPCS: 36415; 36600; 51600; 74178-TC; 80053; 82565; 82803; 82977; 83010; 84450; 84460; 84520; 84550; 85025; 85032; 85045; 88307-TC